=== PATIENT | female | born 1965 | race Caucasian/White ===

== ENCOUNTER → 2018-08-15 | Outpatient (CLI) | payer OTHER ==
--- NOTE | 2018-08-15 10:47 | RADIOLOGY IMAGING REPORT ---
FACILITY: [facility] PATIENT NAME: Namrata Goodwin : 1965 MR: [id number] V: [id number] EXAM DATE: ORDERING PHYSICIAN: RICCARDO ROB TECHNOLOGIST: Location: [facility] Patient: Namrata Goodwin : 1965 Visit/Account:[id number] Date of Sevice: 08/15/2018 DEXA Scan Clinical history: Screening. Comparison: DEXA scan from 06/18/2012. LUMBAR SPINE: The bone mineral density (BMD) measured from L1-L4 correlates with a Z-score of 0.8 and a T-score of -0.3 which is Normal as defined by the World Health Organization. The corresponding risk of fracture in the lumbar spine is Not increased compared with a young adult reference population. This value h as decreased by 2.2 % since the prior study. More than 5% change is considered significant. HIP: Bone mineral density (BMD) measured in the LEFT total hip region correlates with a Z-score -0.1 and a T-score of -1 which is normal as defined by the World Health Organization. The corresponding risk of fracture in the hip is 2 ketan es increased compared to a young adult reference population. This value has decreased by 8.7 % since the prior study. More than 5% change is considered significant. T score left femoral neck -1.7 Bone mineral density (BMD) measured in the Femoral Neck region measures 0.796 g/cm?. IMPRESSION: 1. Lumbar spine: Normal. There has been 2.2% decrease in the bone mineral density since the previou s exam. 2. Left Total Hip: Normal. There has been 8.7% decrease in the bone mineral density since the previ ous exam. 3. Femoral Neck: Bone Mineral Density is 0.796 g/cm? The next DEXA scan of this patient should include the following sites: L1-L4 and the left hip. FRAX? WHO Fracture Risk Assessment Tool link: <http://www.shef.ac.uk/FRAX/tool.jsp?locationValue=9> PLEASE NOTE: 1) The World Health Organization defines low BMD as follows: T-score Normal > -1 Osteopenia < -1 and > -2.5 Osteoporosis < -2.5 without fractures Established osteoporosis < -2.5 with fractures 2) In general, you may wish to consider: Diagnosis Treatment Follow-up DEXA Normal BMD Prevention 2-3 years Osteopenia Prevention/therapy 1-2 years Osteoporosis Therapy Yearly 3) Fracture risk estimated from the T-score is more accurate for vertebral fractures (often spontane ous) than for hip fractures. Report Dictated By: Nicole Castillo MD at 08/15/2018 10:41 AM Report E-Signed By: Nicole Castillo MD at 08/15/2018 10:43 AM WSN:[email or web address]
--- NOTE | 2018-08-16 13:03 | RADIOLOGY IMAGING REPORT ---
FACILITY: [facility] PATIENT NAME: JOYCE JEWELL : [id number] MR: [id number] V: [id number] EXAM DATE: [id number] ORDERING PHYSICIAN: RICCARDO ROB TECHNOLOGIST: Yvette Shaikh PROCEDURE:BILATERAL DIGITAL SCREENING MAMMOGRAM WITH CAD ASSISTED INTERPRETATION & 3D TOMOSYNTHESIS COMPARISON:Prior mammograms 08/11/16, 07/06/14, 07/02/13, 06/18/12. INDICATIONS:SCREENING FINDINGS: Moderately dense fibroglandular tissue is seen throughout the breasts. The parenchymal pattern has remained stable allowing for difference in mammographic technique & patient positioning. There is no evidence of malignant appearing mass, malignant appearing calcifications or other secondary sign of malignancy in either breast. DIAGNOSTIC CATEGORY 1--NEGATIVE. RECOMMENDATIONS: ROUTINE MAMMOGRAM AND CLINICAL EVALUATION. IMPRESSION: BIRADS 1: Negative. No significant abnormality is seen. Dictated by: Nicole Castillo M.D. on 08/15/2018 at 11:01 Transcribed by: CATRACHO on 08/15/2018 at 11:31 Approved by: Nicole Castillo M.D. on 08/16/2018 at 13:01 [facility]
== END ==
LOC: MAMO 00:35
PROVIDERS: ATTEND Obstetrics & Gynecology
DX: Z13.820 Encounter for screening for osteoporosis (principal); Z12.31 Encounter for screening mammogram for malignant neoplasm of breast
CPT/HCPCS: 77063; 77067; 77080

== ENCOUNTER 2018-12-18 16:56 | Emergency (ER) | payer OTHER ==
[2018-12-18 16:58] VITALS: BP 149/100
--- NOTE | 2018-12-18 17:00 | ER Report ---
History and Physical Time Seen By MD: 16:59 HPI/ROS CHIEF COMPLAINT: Prison clearance for DUI HISTORY OF PRESENT ILLNESS: 53-year-old female was brought in by police for driving under the influence patient admits to drinking 4-6 beers today denies any illicit use says that she doesn't remember how she got home patient has no physical additional complaints REVIEW OF SYSTEMS: Respiratory: No cough, no dyspnea. Cardiovascular: No chest pain, no palpitations. Gastrointestinal: No vomiting, no abdominal pain. Musculoskeletal: No back pain. Remainder of the 14 system rev: Yes Allergies: Coded Allergies: No Known Drug Allergies (Unverified , 10/22/16) Home Meds No Active Prescriptions or Reported Meds Reviewed Nurses Notes: Yes Old Medical Records Reviewed: Yes Hx Substance Use Disorder: No Hx Alcohol Use: No Physical Exam General Appearance: The patient is alert, has no immediate need for airway protection and no current signs of toxicity. Positive alcohol. Intoxicated Eyes: Pupils equal and round no injection. Respiratory: Chest is non tender, lungs are clear to auscultation. Cardiac: regular rate and rhythm [ ] Gastrointestinal: Abdomen is soft and non tender, no masses, bowel sounds normal. Musculoskeletal: Neck: Neck is supple and non tender. Extremities have full range of motion and are non tender. Skin: No rashes or lesions. [ ] DIFFERENTIAL DIAGNOSIS: After history and physical exam differential diagnosis was considered for alcohol use and abuse Medical Decision Making ED Course/Re-evaluation ED Course 53-year-old female brought here for medical clearance for long-term after being arrested for DUI no imaging or testing needed this time released to police custody Decision to Disposition Date: Dec 18, 2018 Decision to Disposition Time: 17:00 Depart Departure Impression: Primary Impression: Alcohol intoxication Condition: Condition Unchanged Disposition: [facility] New Scripts No Active Prescriptions or Reported Meds Patient Instructions: Alcohol Intoxication (DC) CHRISTOPHER FLORES MD Dec 18, 2018 17:00
== END 2018-12-18 17:05 ==
LOC: ER 17:02
DX: F10.920 Alcohol use, unspecified with intoxication, uncomplicated (principal)
CPT/HCPCS: 99281

== ENCOUNTER 2019-04-01 16:29 | Emergency (ER) | payer OTHER ==
--- NOTE | 2019-04-01 16:31 | ER Report ---
History and Physical Time Seen By MD: 16:28 HPI/ROS CHIEF COMPLAINT: Alcohol detox HISTORY OF PRESENT ILLNESS: Patient is a 53-year-old female here with complaints of wanting to detox or alcohol. Patient reports that her last alcohol beverage w as last night. Patient reports being tremulous, anxious. Patient does report that she got a DUI in January and is following with a drug court. Denies prior history of withdrawal seizures, prior attempts at detox. Denies other drug use. Patient is afebrile, hemodynamically stable at time of evaluation. REVIEW OF SYSTEMS: Constitutional: No fever, no chills. Eyes: No discharge. ENT: No sore throat. Cardiovascular: No chest pain, no palpitations. Respiratory: No cough, no shortness of breath. Gastrointestinal: No abdominal pain, no vomiting. Genitourinary: No hematuria. Musculoskeletal: No back pain. Skin: No rashes. Neurological: Anxious, tremulous Allergies: Coded Allergies: No Known Drug Allergies (Unverified , 10/22/16) Home Meds No Active Prescriptions or Reported Meds Hx Substance Use Disorder: No Hx Alcohol Use: No Constitutional Vital Sign - Last 24 Hours 04/01/19 04/01/19 16:35 17:05 Temp 99.0 Pulse 92 92 Resp 18 18 B/P (MAP) 164/95 145/87 (106) Pulse Ox 94 95 O2 Delivery Room Air Room Air Physical Exam General Appearance: The patient is alert, has no immediate need for airway protection and no signs of toxicity. Anxious appearing, tremulous Eyes: Pupils equal and round no pallor or injection. ENT, Mouth: Mucous membranes are moist. Respiratory: There are no retractions, lungs are clear to auscultation. Cardiovascular: Regular rate and rhythm. Gastrointestinal: Abdomen is soft and non tender, no masses, bowel sounds normal. Neurological: No focal neurological deficits, alert and oriented Skin: Warm and dry, no rashes. Musculoskeletal: Neck is supple non tender. Extremities are nontender, nonswollen and have full range of motion. DIFFERENTIAL DIAGNOSIS: After history and physical exam differential diagnosis was considered for alcohol withdrawal, polysubstance abuse, electrolyte abnormality Medical Decision Making Data Points Result Diagram: 04/01/19 1626 04/01/19 1626 Laboratory Hematology Test 04/01/19 16:26 White Blood Count 6.0 k/uL (4.5-11.0) Red Blood Count 4.36 M/uL (4.17-5.56) Hemoglobin 14.7 g/dL (12.0-16.0) Hematocrit 42.7 % (34.0-47.0) Mean Corpuscular Volume 98.1 fL (80.0-96.0) H Mean Corpuscular Hemoglobin 33.8 pg (26.0-33.0) H Mean Corpuscular Hemoglobin Concent 34.5 g/dL (32.0-36.0) Red Cell Distribution Width 12.6 % (11.5-14.5) Platelet Count 164 K/uL (150-450) Mean Platelet Volume 8.4 fL (7.2-11.1) Neutrophils (%) (Auto) 78.9 % (39.4-72.5) H Lymphocytes (%) (Auto) 10.1 % (17.6-49.6) L Monocytes (%) (Auto) 10.1 % (4.1-12.4) Eosinophils (%) (Auto) 0.0 % (0.4-6.7) L Basophils (%) (Auto) 0.9 % (0.3-1.4) Nucleated RBC Relative Count (auto) 0.0 /100WBC Neutrophils # (Auto) 4.8 K/uL (2.0-7.4) Lymphocytes # (Auto) 0.6 K/uL (1.3-3.6) L Monocytes # (Auto) 0.6 K/uL (0.3-1.0) Eosinophils # (Auto) 0.0 K/uL (0.0-0.5) Basophils # (Auto) 0.1 K/uL (0.0-0.1) Nucleated RBC Absolute Count (auto) 0.00 K/uL Chemistry Test 04/01/19 00:00 04/01/19 16:26 Sodium Level 135 mmol/L (137-145) Potassium Level 3.6 mmol/L (3.5-5.0) Chloride Level 98 mmol/L (98-107) Carbon Dioxide Level 20 mmol/L (22-31) Blood Urea Nitrogen 13 mg/dl (7-18) Creatinine 0.60 mg/dl (0.52-1.04) Glomerular Filtration Rate Calc > 60.0 Random Glucose 120 mg/dl (75-110) Calcium Level 9.9 mg/dl (8.4-10.2) Magnesium Level 1.6 mg/dl (1.7-2.2) Total Bilirubin 1.0 mg/dl (0.2-1.3) Aspartate Amino Transf (AST/SGOT) 115 U/L (0-35) Alanine Aminotransferase (ALT/SGPT) 55 U/L (0-56) Alkaline Phosphatase 143 U/L (0-126) Total Protein 8.9 g/dl (6.3-8.2) Albumin 4.9 g/dl (3.5-5.0) Toxicology Test 04/01/19 16:26 04/01/19 16:35 Salicylates Level < 10 mg/L Salicylate Last Dose Date unknown Acetaminophen Level < 10 ug/ml Serum Alcohol < 10 mg/dl Urine Opiates Screen Negative Urine Barbiturates Screen Negative Ur Tricyclic Antidepressants Screen Negative Urine Phencyclidine Screen Negative Urine Amphetamines Screen Negative Urine Benzodiazepines Screen Negative Urine Cocaine Screen Negative Urine Cannabinoids Screen Negative Urinalysis Test 04/01/19 16:35 Urine Color Yellow Urine Clarity Slightly-cloudy Urine pH 5.0 pH (4.8-9.5) Urine Specific [place] 1.021 Urine Protein Negative mg/dL (NEGATIVE) Urine Glucose (UA) Negative mg/dL (NEGATIVE) Urine Ketones 80 mg/dL (NEGATIVE) Urine Blood Negative (NEGATIVE) Urine Nitrite Negative (NEGATIVE) Urine Bilirubin Negative (NEGATIVE) Urine Urobilinogen Negative mg/dL (0.2-1.9) Urine Leukocyte Esterase Trace (NEGATIVE) Urine RBC 3 /HPF (0-2/HPF) Urine WBC 14 /HPF (0-5/HPF) Urine Squamous Epithelial Cells Many /LPF (</=FEW) Urine Transitional Epithelial Cells Many /LPF (NONE-FEW) Urine Bacteria Few /HPF (NONE-FEW) Urine Mucus Few /HPF (NONE-FEW) ED Course/Re-evaluation ED Course Patient is a 53-year-old female here with hopes of detoxing from alcohol with a recent history of a DUI in January. Patient denies prior history of withdrawal seizures. Patient was administered banana bag, Ativan. Patient was hemod ynamically stable throughout course. I discussed the patient with Dr. Ibanez who accepted the patient to behavioral services. Patient was stable at time of admission. Decision to Disposition Date: Apr 01, 2019 Decision to Disposition Time: 17:38 Depart Departure Latest Vital Signs Vital Signs Date Time Temp Pulse Resp B/P (MAP) Pulse Ox O2 Delivery O2 Flow Rate FiO2 04/01/19 17:05 92 18 145/87 (106) 95 Room Air 04/01/19 16:35 99.0 Impression: Primary Impression: Alcohol withdrawal Condition: Improved Disposition: [facility] New Scripts No Active Prescriptions or Reported Meds JOSE GLEASON DO Apr 01, 2019 16:31
[2019-04-01] MEDS ORDERED: THIAMINE HCL(*) 200 MG/2 ML IN 100 MG, FOLIC ACID(*) 50 MG/10 ML INJ 1 MG, MULTIVITAMIN... IV ONE (16:45)
[2019-04-01] MEDS ORDERED: LORazepam 2 MG/ML VIAL IVP ONE (16:45)
[2019-04-01 17:05] VITALS: BP 145/87
[2019-04-01 17:10] LABS: PLATELET COUNT, AUTOMATED 164 K/uL (150-450)
== END 2019-04-01 18:16 ==
LOC: ER 16:37
DX: F10.230 Alcohol dependence with withdrawal, uncomplicated (principal); R25.1 Tremor, unspecified; F41.9 Anxiety disorder, unspecified
CPT/HCPCS: 80305; 80320; 80329; 81001; 83735; 84443; 85025; 87088; 96365; 96375; 99283; J2060; J3411; J7030; 82040; 82247; 82310; 82374; 82435; 82565; 82947; 84075; 84132; 84155; 84295; 84450; 84460; 84520; 87077; 87186

== ENCOUNTER 2019-04-01 17:50 | Inpatient (IN) | payer OTHER ==
[~2019-04-01] VITALS: Ht 160 cm; Wt 48.1 kg
[2019-04-01] MEDS ORDERED: MAG HYD/AL HYD/SIMETH 30ML UDC PO PRN (18:10)
[2019-04-01 19:00] VITALS: BP 128/82
[2019-04-01] MEDS: DIAZEPAM 10 MG TAB PO PRN (19:15)
[2019-04-01] MEDS ORDERED: NICOTINE POLACRILEX 2 MG GUM PO PRN (19:45)
[2019-04-02 04:00] VITALS: BP 136/87
[2019-04-02 08:20] VITALS: BP 140/86
[2019-04-02] MEDS: MULTIVITAMINS TAB PO SCH (08:34)
[2019-04-02] MEDS: FOLIC ACID 1 MG TAB PO SCH (08:34)
[2019-04-02] MEDS: THIAMINE HCL 100 MG TAB PO SCH (08:35)
[2019-04-02] MEDS: DIAZEPAM 10 MG TAB PO PRN ×2 (08:35→22:14)
[2019-04-02 12:40] VITALS: BP 142/84
--- NOTE | 2019-04-02 15:09 | SCHAAF H&P ---
DATE OF ADMISSION: April 01, 2019 Patient was seen at approximately 0800 hours on April 01, 2019 for note concerning this dictation. PRESENTING PROBLEM/CHIEF COMPLAINT Patient voluntarily here for treatment for alcohol detoxification. 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 Patient reports this continued after she left that place of employment. Patient was recently, believed to be in December, charged for her first driving under the influence charge and patient participated in drug court. Patient, with the help of her comedian, would like to detox so she can effectively participate. Patient adamantly denying any other psychiatric concerns now or in the past. Seems to be a very accurate historian overall. MENTAL HEALTH HISTORY Patient has never been in-patient in a psychiatric an before. No outpatient services and no history of suicidal attempt or thoughts. Patient has not been on psychiatric meds. Patient has not had treatment for alcohol at a rehab center. It is unknown at this time if patient has attended AA in the past. FAMILY PSYCHIATRIC HISTORY Remains unknown as patient was adopted at 3 days of age and no knowledge of genetic history. PAST MEDICAL HISTORY Patient has no allergies and denies any significant medical concerns. SOCIAL HISTORY The patient was born in [place], raised in the [facility] and [place]. Parents were at the time of . They are together in [place] to this day. Parent's adoptive parents were together at the time of her adoption at age 3 days. They remain together in [place]. She has two brothers and one sister. These are not genetically related. She is a high-school graduate, obtained a Bachelor's in Science and patient reports a good childhood, free of any emotional, physical or sexual abuse growing up. She has never been in the . She was twice, the second time for going on 11 years. She helped raise his children from a previous marriage and they are 21 and 25 now. She has been working at [employer] since it opened here in [place] in May 2018. LEGAL HISTORY Significant for DUI x1 recently in December. SUBSTANCE ABUSE HISTORY Significant for long-term abuse of alcohol. Denies any other substances. PHYSICAL EXAMINATION Please see emergency room note. Notable for thin, 53-year old female. No acute medical distress. Presenting voluntarily. Vital signs show temperature 99.0, pulse 92, respiratory rate 18, blood pressure 164/95, pulse oximetry 94% on room air. LABORATORY DATA CBC notable for MCV and MCH elevated at 98.1 and 33.8, respectively. Chemistry panel notable for random glucose slightly elevated at 120. Total bilirubin 1.0, normal range. AST elevated at 115. TSH pending. Urinalysis notable for urine ketones present, trace leukocyte esterase, 14 white blood cells. Toxicology screen negative with a nondetectable serum alcohol level. MENTAL STATUS EXAMINATION GENERAL APPEARANCE, BEHAVIOR AND ATTITUDE: This is a 53-year old female, appears stated age, well-groomed, thin body habitus, making good eye contact. No bizarre mannerisms or tics. Mild psychomotor agitation associated with alcohol withdrawal seen. No periods of tearfulness. SPEECH: Within normal limits. Regular rate, rhythm, volume and tone. MOOD: Described as mostly good. AFFECT: Generally full and mood-congruent. THOUGHT PROCESSES: Goal-directed and logical. No loose associations or flight of ideas. THOUGHT CONTENT: Free of auditory or visual hallucinations, ideas of reference, thought broadcastings, delusions, obsessions or compulsions. Patient adamantly denying suicidal or homicidal ideations. SENSORIUM: Clear. COGNITION: Alert and oriented to person, place, time and situation. MEMORY: Immediate, recent and remote estimated intact. INTELLIGENCE: Average, based on interview. INSIGHT AND JUDGMENT: Considered grossly intact. Patient presenting voluntarily for help with alcohol withdrawal. ASSESSMENT This is a very pleasant 53-year-old female, appears to be an accurate historian overall, requesting help with some pressure from the courts for alcohol withdrawal after receiving her first DUI a few months back. At this time, we will treat alcohol withdrawal to completion with diazepam per [facility] protocol and we will also get repeat UA at this time. DIAGNOSES 1. Alcohol withdrawal. 2. Alcohol use disorder, severe, supportive family. 3. Recent legal stressors. PLAN 1. Admit to the unit. 2. Necessary precautions will be implemented. 3. The patient will participate in individual and group therapy. 4. Medications will be reviewed and titrated accordingly. Diazepam per [facility] protocol will be used. 5. We will get repeat UA. 5. Estimated length of stay 3 to 5 days. MTDD
[2019-04-02 16:10] VITALS: BP 136/86
[2019-04-03 06:16] VITALS: BP 150/86
[2019-04-03] MEDS: FOLIC ACID 1 MG TAB PO SCH (08:14)
[2019-04-03] MEDS: THIAMINE HCL 100 MG TAB PO SCH (08:15)
[2019-04-03] MEDS: MULTIVITAMINS TAB PO SCH (08:15)
[2019-04-03] MEDS: DIAZEPAM 10 MG TAB PO PRN (09:06)
[2019-04-03 10:30] VITALS: BP 140/92
[2019-04-03] MEDS ORDERED: MULT-1379 PO (13:03)
[2019-04-03] MEDS ORDERED: NICO-219 BC (13:04)
[2019-04-03] MEDS ORDERED: VITA-175 PO (13:05)
[2019-04-03] MEDS ORDERED: TRAZ150T8 PO (13:05)
[2019-04-03 14:45] VITALS: BP 140/96
--- NOTE | 2019-04-04 14:49 | SCHAAF DISCHARGE ---
DATE OF ADMISSION: April 01, 2019 DATE OF DISCHARGE: April 03, 2019 ATTENDING PHYSICIAN Sae Ibanez MD The patient was seen at approximately 0900 hours on April 03, 2019 for note concerning this dictation. FINAL DIAGNOSES 1. Alcohol use disorder, severe. 2. Legal stressors. 3. Supportive . REASON FOR ADMISSION This is a very pleasant 53-year-old female who was admitted on a voluntary basis, encouraged by her two way radio technician who is helping her currently with drug court following her first DUI to detox from alcohol. The patient presented to the emergency room voluntarily. The patient able to use her days off from work to detox. The patient thinking this through. The patient was very cooperative and overall appeared to be accurate historian. Please see H and P for full details. Alcohol withdrawal was treated to completion with diazepam via [facility] protocol and was considered to be [id number] withdrawal in nature. The patient denying adamantly any other psychiatric concerns and interacting well with staff, other patient's and overall taking an active role in her treatment here at the hospital prior to discharge. PHYSICAL EXAMINATION Please see emergency room note. Notable for a 53-year-old female presenting for alcohol withdrawal. Vital signs at the time of admission: Temperature 99.0, pulse 92, respiratory rate 18, blood pressure 164/95 and pulse oximetry 94% on room air. Vital signs at the time of discharge: Temperature 98.5, pulse 92, respiratory rate 18, blood pressure 140/96 and pulse oximetry 96% on room air. LABORATORY DATA screen was negative. CBC notable for MCV and MCH elevated mildly at 98.1 and 33.8, platelet count 164,000 in low normal range upon arrival. CMP notable for magnesium slightly low 1.6 with an AST elevated at 115. TSH in normal range 1.14 Urinalysis did show trace leukocyte esterase, ketones present with many squamous and transitional epithelial cells. Toxicology screen was negative with a nondetectable serum alcohol upon admission. Microbiology report has been returned on UA at the time of dictation indicating klebsiella. MENTAL STATUS EXAMINATION GENERAL APPEARANCE, BEHAVIOR AND ATTITUDE: This is cooperative, pleasant 53-year-old female, appears stated age, making good eye contact. No psychomotor agitation or retardation. No bizarre mannerisms or tics and no periods of tearfulness. SPEECH: Within normal limits. Regular rate, rhythm, volume and tone. MOOD: Described as good. AFFECT: Full and bright. THOUGHT PROCESSES: Logical and goal-directed. The patient requesting to discharge as soon as possible when alcohol withdrawal was complete in order to attend work. No loose associations or flight of ideas. THOUGHT CONTENT: Free of auditory or visual hallucinations, ideas of reference, thought broadcastings, delusions, obsessions or compulsions. The patient is adamantly denying suicidal or homicidal ideation. SENSORIUM: Clear. COGNITION: Alert and oriented to person, place, time and situation. MEMORY: Immediate, recent and remote was estimated intact. INTELLIGENCE: Average, based on interview. INSIGHT AND JUDGMENT: Considered grossly intact in the absence of alcohol use. RESULTS OF TESTING Imaging: None. Laboratory data: See above. Psychological testing: Not done. CONSULTATIONS None. TREATMENT Patient received medications, participated in individual and group therapy. HOSPITAL COURSE This is a very pleasant 53-year-old female who took an active role in her treatment here at the hospital. The patient cooperative with care. Alcohol withdrawal treated to completion and patient discharged to home. CONDITION OF PATIENT ON DISCHARGE Stable. Considered a minimal risk to herself or others in the absence of alcohol use. DISPOSITION The patient was discharged to home in the care of her . She would follow up with drug court and outpatient services as recommended. She would abstain from alcohol, encouraged to attend AA as well and obtain a sponsor. Given the Crisis Line should symptoms return. Recent return of microbiology report concerning culture sensitivity of UA will be addressed. Will get ahold of patient and call in script of Bactrim DS twice a day for 7 days. The risks, benefits and alternatives of the above discharge plan were discussed. Informed consent was given to proceed with the above discharge plan by this competent patient. The patient's present at time of discharge. The patient's two way radio technician also aware of plan to discharge. TEMI
== END 2019-04-03 17:22 | disposition home or self-care (01) | DRG 897 ==
LOC: BHS 17:50
PROVIDERS: ADMIT Psychiatry & Neurology Psychiatry; ATTEND Psychiatry & Neurology Psychiatry
DX: F10.230 Alcohol dependence with withdrawal, uncomplicated (principal); Z65.3 Problems related to other legal circumstances; Y90.0 Blood alcohol level of less than 20 mg/100 ml
CPT/HCPCS: 81025